=== PATIENT | female | born 1985 | race Caucasian/White ===

== ENCOUNTER 2017-09-29 14:35 | Observation (INO) | payer OTHER ==
[~2017-09-29] VITALS: Ht 152.4 cm; Wt 65.8 kg
[~2017-09-29 14:35] MED LIST: NAPR-54 PO
[2017-09-29] MEDS ORDERED: FERR-252 PO (17:56)
[2017-09-29] MEDS ORDERED: PREN-546 PO (17:56)
== END 2017-09-29 19:00 | disposition home or self-care (01) ==
LOC: MLD 14:35
PROVIDERS: ADMIT Obstetrics & Gynecology; ATTEND Obstetrics & Gynecology
DX: O62.9 Abnormality of forces of labor, unspecified (principal); Z3A.24 24 weeks gestation of pregnancy
CPT/HCPCS: 76805; G0378; Q0092

== ENCOUNTER 2018-06-16 11:36 | Emergency (ER) | payer OTHER ==
[~2018-06-16] VITALS: Ht 152.4 cm; Wt 65.3 kg
[~2018-06-16 11:36] MED LIST changes: +FERR-252 PO; -NAPR-54 PO; +PREN-546 PO
[2018-06-16 11:58] VITALS: BP 123/80
--- NOTE | 2018-06-16 14:00 | NUR ---
1ST CALL FREDDY SHELBY N/A [id number] CALL FREDDY SHELBY N/A
--- NOTE | 2018-06-16 14:13 | NUR ---
PATIENT LEFT WITHOUT BEING SEEN BY DR. MIDDLETON. NO FURTHER CARE PROVIDED FOR PATIENT. 3RD CALL ER AFSANEH N/A
== END 2018-06-16 14:00 | disposition left against medical advice (07) ==
LOC: MED 11:36
DX: R11.2 Nausea with vomiting, unspecified (principal); M54.9 Dorsalgia, unspecified; Z53.21 Procedure and treatment not carried out due to patient leaving prior to being seen by health care provider

== ENCOUNTER 2020-08-27 13:48 | Emergency (ER) | payer SELFPAY ==
[~2020-08-27] VITALS: Ht 152.4 cm; Wt 72.6 kg
[2020-08-27 13:55] VITALS: BP 116/75
--- NOTE | 2020-08-27 14:51 | NUR ---
PATIENT AMBULATED TO BED 12 WITH STEADY GAIT
--- NOTE | 2020-08-27 14:54 | NUR ---
LAB AT BEDSIDE
--- NOTE | 2020-08-27 14:59 | NUR ---
34 Y/O FEMALE C/O PELVIC PAIN 12/08 DESCRIBES ACHING X2DAY RADIATING TO BILATERAL LEGS. PT DENIES TAKING ANYTHING FOR PAIN. PT STATES SHE TOOK A HOME AT HOME YESTERDAY AND IT WAS POSITIVE. LMP 08/05/20, [id number]. PT DENIES N/V, DENIES FEVER/CHILLS. DENIES VAGINAL BLEEDING. ABD IS FLAT, SOFT, AND TENDER ON PALPATION WITH ACTIVE BOWEL SOUNDS X4 QUADS. PT A/O X4 WITH EVEN AND UNLABORED RESPIRATIONS. PT IN GOWN DENIES PMH ALLERGIES: CIPRO
[2020-08-27 15:04] LABS: BILIRUBIN,URINE NEGATIVE (NEGATIVE); BLOOD, URINE 3+ (NEGATIVE); COLOR,URINE YELLOW (YELLOW); LEUKOCYTE ESTERASE ,URINE NEGATIVE (NEGATIVE); NITRITE, URINE NEGATIVE (NEGATIVE); PH,URINE 5.5 (5.0-9.0); UGLUCOSE NEGATIVE (NEGATIVE)
--- NOTE | 2020-08-27 15:04 | NUR ---
BENJAMÍN KEVIN AT BEDSIDE EVALUATING PT.
[2020-08-27 15:13] LABS: BASOPHILS % (AUTO) 0.4 % (0.0-2.0); EOSINOPHILS % (AUTO) 0.3 % (0.0-4.0); HEMATOCRIT 39.5 % (36-48); HEMOGLOBIN 13.4 g/dL (12.0-16.0); LYMPHOCYTES # (AUTO) 2.2 K/uL (2.5-16.5); MEAN CORPUSCULAR HEMOGLOBIN 31 pg (27-31); MEAN CORPUSCULAR HGB CONC 34 g/dL (33-37); MEAN CORPUSCULAR VOLUME 91.8 fL (80-94); MONOCYTES # (AUTO) 0.6 K/uL (0.8-1.0); NEUTROPHILS # (AUTO) 7.1 K/uL (1.8-7.7); NEUTROPHILS % (AUTO) 71.3 % (42.2-75.2); PLATELET COUNT (AUTO) 200 K/uL (140-450); RED BLOOD CELL COUNT(AUTO) 4.31 MIL/uL (4.20-5.40); RED CELL DISTRIBUTION WIDTH 13.7 % (11.6-13.7); WHITE BLOOD COUNT (AUTO) 9.9 K/uL (4.8-10.8)
[2020-08-27 15:16] LABS: APPEARANCE,URINE HAZY (CLEAR)
--- NOTE | 2020-08-27 15:24 | NUR ---
US AT BEDSIDE
[2020-08-27 16:03] LABS: RBC,URINE 11-20 (MOD) /HPF (0-5)
[2020-08-27] MEDS ORDERED: ACETAMINOPHEN EXTRA STRENGTH 500 MG TAB PO ONE (16:35)
[2020-08-27] MEDS ORDERED: ACET-10509 PO (17:18)
[2020-08-27 17:32] VITALS: BP 116/75
--- NOTE | 2020-08-27 17:33 | NUR ---
Patient discharged with v/s stable. Written and verbal after care instructions ABOUT THREATENED MISCARRIAGE given and explained. Patient alert, oriented and verbalized understanding of instructions. Ambulatory with steady gait. All questions addressed prior to discharge. ID band removed. Patient advised to follow up with PMD. Rx of ACETAMINOPHEN TAB EXTRA STRENGTH given. Patient educated on indication of medication including possible reaction and side effects. Opportunity to ask questions provided and answered.
== END 2020-08-27 17:33 | disposition home or self-care (01) ==
LOC: MED 13:48
DX: O26.899 Other specified pregnancy related conditions, unspecified trimester (principal); R10.2 Pelvic and perineal pain; Z88.1 Allergy status to other antibiotic agents; Z79.899 Other long term (current) drug therapy; Z87.442 Personal history of urinary calculi
CPT/HCPCS: 36415; 76817; 81001; 81025; 84702; 85025; 86900; 86901; 87086; 96374; 96375; 99284; 99285

== ENCOUNTER 2020-10-31 04:20 | Emergency (ER) | payer MEDICAID ==
[~2020-10-31] VITALS: Ht 157.5 cm; Wt 77.1 kg
[~2020-10-31 04:20] MED LIST changes: +ACET-10509 PO
[2020-10-31 04:25] VITALS: BP 124/71
--- NOTE | 2020-10-31 04:28 | NUR ---
TO LOBBY A/W BED AMBULATORY
--- NOTE | 2020-10-31 04:54 | NUR ---
PT ABULATED TO ER BED 4
--- NOTE | 2020-10-31 05:09 | NUR ---
Ultrasound at bedside.
--- NOTE | 2020-10-31 05:22 | NUR ---
35 YO/F BIB SELF W CO CONSTANT R PELVIC "INTENSE ACHE" 12/08 THAT RADIATES TO R LEG AND R LOWER BACK BEGINING AT 2300 LAST NIGHT. PAIN WORSENS W MOVEMENT. PATIENT REPORTS SHE IS 3 WEEKS , DENIES VAGINAL BLEEDING OR ABDNORMAL VAGINAL DISCHARGE. PATIENT ALSO REPORTS NAUSEA D/T . PATIENT DENIES FEVER, V/D. BOWEL SOUNDS PRESENT, R LOWER ABDOMINAL/PELVIC AREA TENDER TO TOUCH. PATIENT REPORTS SHE TOOK 500MG OF TYLENOL X2 HOURS AGO W/O RELIEF. PATIENT LAYING SUPINE IN BED, BREATHING EVEN AND UNLABORED, NAD NOTED. WILL CONTINUE TO MONITOR. PMH:KIDNEY STONES IN 2006 ALLERGIES: CIPRO
[2020-10-31 05:55] LABS: BASOPHILS % (AUTO) 0.2 % (0.0-2.0); EOSINOPHILS % (AUTO) 0.4 % (0.0-4.0); HEMATOCRIT 34.1 % (36-48); HEMOGLOBIN 11.9 g/dL (12.0-16.0); LYMPHOCYTES % (AUTO) 14.2 % (20.5-51.1); MEAN CORPUSCULAR HEMOGLOBIN 32 pg (27-31); MEAN CORPUSCULAR HGB CONC 35 g/dL (33-37); MEAN CORPUSCULAR VOLUME 91.8 fL (80-94); MONOCYTES # (AUTO) 0.4 K/uL (0.8-1.0); MONOCYTES % (AUTO) 5.4 % (1.7-9.3); NEUTROPHILS # (AUTO) 5.7 K/uL (1.8-7.7); NEUTROPHILS % (AUTO) 79.8 % (42.2-75.2); PLATELET COUNT (AUTO) 166 K/uL (140-450); RED BLOOD CELL COUNT(AUTO) 3.71 MIL/uL (4.20-5.40); RED CELL DISTRIBUTION WIDTH 14.1 % (11.6-13.7); WHITE BLOOD COUNT (AUTO) 7.1 K/uL (4.8-10.8)
[2020-10-31 06:00] LABS: BILIRUBIN,URINE NEGATIVE (NEGATIVE); BLOOD, URINE TRACE-I (NEGATIVE); COLOR,URINE YELLOW (YELLOW); LEUKOCYTE ESTERASE ,URINE TRACE (NEGATIVE); NITRITE, URINE NEGATIVE (NEGATIVE); UGLUCOSE NEGATIVE (NEGATIVE)
[2020-10-31] MEDS: ACETAMINOPHEN 325 MG TAB PO ONE (06:06)
[2020-10-31 06:39] LABS: APPEARANCE,URINE HAZY (CLEAR)
[2020-10-31 06:40] LABS: ALBUMIN 3.1 g/dL (3.4-5.0); ANION GAP 11.3 (8-16); CARBON DIOXIDE 27.9 mmol/L (21-32); CREATININE 0.6 mg/dL (0.6-1.3); POTASSIUM 3.2 mmol/L (3.5-5.1); TOTAL BILIRUBIN 0.3 mg/dL (0.0-1.0)
[2020-10-31 06:40] LABS: RBC,URINE 0-5 /HPF (0-5); WBC,URINE 0-5 /HPF (0-5)
--- NOTE | 2020-10-31 07:26 | NUR ---
Pt report given to JUAN GALINDO. Transfer of care at this time.
--- NOTE | 2020-10-31 07:43 | NUR ---
ASSUMED CARE OF THIS PATIENT, REPORT RECEIVED FROM LÁZARO MARTINEZ . RESTING WITH EYES CLOSED, AWAITING RESULTS AND PLAN OF CARE.
[2020-10-31 07:44] VITALS: BP 121/69
[2020-10-31] MEDS ORDERED: NITR100C7 PO (07:45)
--- NOTE | 2020-10-31 08:07 | NUR ---
Patient discharged with v/s stable. Written and verbal after care instructions ABOUT UTI given and explained. Patient alert, oriented and verbalized understanding of instructions. Ambulatory with steady gait. All questions addressed prior to discharge. ID band removed. Patient advised to follow up with PMD. Rx of MACROBID 100MS CAPSULE given. Patient educated on indication of medication including possible reaction and side effects. Opportunity to ask questions provided and answered.
== END 2020-10-31 08:06 | disposition home or self-care (01) ==
LOC: MED 04:20
DX: N39.0 Urinary tract infection, site not specified (principal); Z87.442 Personal history of urinary calculi; Z79.899 Other long term (current) drug therapy; Z88.1 Allergy status to other antibiotic agents
CPT/HCPCS: 36415; 76801; 80053; 81001; 83690; 84702; 85025; 99284

== ENCOUNTER 2021-03-09 08:25 | Observation (INO) | payer MEDICAID, OTHER ==
[~2021-03-09] VITALS: Ht 152.4 cm; Wt 74.4 kg
[~2021-03-09 08:25] MED LIST changes: +NITR100C7 PO
[2021-03-09] MEDS ORDERED: BETAMETH ACET/BETAMETH NA PH 30 MG/5 ML VIAL IM SCH (08:50)
[2021-03-09] MEDS: TERBUTALINE 1 MG/ML VIAL SUBQ SCH ×2 (08:50→10:28)
[2021-03-09] MEDS: DEXT 5% / LACT RING 1,000 ML IV SCH ×2 (09:04→11:00)
[2021-03-09] MEDS: MAG SULF 20 GM/H2O PREMIX DRIP 500 ML IV SCH (13:30)
[2021-03-09 13:50] LABS: ALBUMIN 2.3 g/dL (3.4-5.0); ANION GAP 13.9 (8-16); CARBON DIOXIDE 25.3 mmol/L (21-32); CREATININE 0.6 mg/dL (0.6-1.3); MAGNESIUM 1.7 mg/dL (1.8-2.4); POTASSIUM 3.2 mmol/L (3.5-5.1); TOTAL BILIRUBIN 0.2 mg/dL (0.0-1.0)
[2021-03-09] MEDS ORDERED: POTASSIUM CHLORIDE 10 MEQ TABER PO SCH (16:22)
[2021-03-09] MEDS ORDERED: LACTATED RINGERS 1,000 ML IV SCH (18:00)
[2021-03-10] MEDS: MAG SULF 20 GM/H2O PREMIX DRIP 500 ML IV SCH (00:02)
--- NOTE | 2021-03-10 08:27 | NUR ---
PATIENT HAS BEEN SCREENED AND CATEGORIZED LOW NUTRITION RISK. PATIENT WILL BE SEEN WITHIN 7 DAYS OF ADMISSION. 03/05/[address]
[2021-03-10] MEDS ORDERED: BETAMETH ACET/BETAMETH NA PH 30 MG/5 ML VIAL IM SCH (09:00)
== END 2021-03-10 10:00 | disposition home or self-care (01) ==
LOC: MLD 08:25
PROVIDERS: ADMIT Obstetrics & Gynecology; ATTEND Obstetrics & Gynecology
DX: O60.03 Preterm labor without delivery, third trimester (principal); Z20.822 Contact with and (suspected) exposure to COVID-19; Z3A.31 31 weeks gestation of pregnancy
CPT/HCPCS: 36415; 59025; 80053; 83735; 87426; 93970; 96361; 96365; 96366; 96372; G0378; G0379; J0702; J3105; J3475; Q0092

== ENCOUNTER 2021-04-18 19:30 | Inpatient (IN) | payer OTHER, SELFPAY ==
[~2021-04-18] VITALS: Ht 152.4 cm; Wt 79.4 kg
[~2021-04-18 19:30] MED LIST changes: -ACET-10509 PO; -FERR-252 PO; -NITR100C7 PO
[2021-04-18 20:09] VITALS: BP 116/66
[2021-04-18] MEDS ORDERED: METHYLERGONOVINE 0.2 MG/ML AMP IM PRN (20:10)
[2021-04-18 21:08] LABS: BASOPHILS % (AUTO) 0.3 % (0.0-2.0); EOSINOPHILS # (AUTO) 0.1 K/uL (0-0.4); EOSINOPHILS % (AUTO) 0.9 % (0.0-4.0); HEMATOCRIT 30.7 % (36-48); HEMOGLOBIN 10.7 g/dL (12.0-16.0); LYMPHOCYTES # (AUTO) 1.5 K/uL (2.5-16.5); LYMPHOCYTES % (AUTO) 21.8 % (20.5-51.1); MEAN CORPUSCULAR HEMOGLOBIN 32 pg (27-31); MEAN CORPUSCULAR HGB CONC 35 g/dL (33-37); MEAN CORPUSCULAR VOLUME 91.5 fL (80-94); MONOCYTES # (AUTO) 0.5 K/uL (0.8-1.0); MONOCYTES % (AUTO) 7.4 % (1.7-9.3); NEUTROPHILS # (AUTO) 4.8 K/uL (1.8-7.7); NEUTROPHILS % (AUTO) 69.6 % (42.2-75.2); PLATELET COUNT (AUTO) 135 K/uL (140-450); RED BLOOD CELL COUNT(AUTO) 3.35 MIL/uL (4.20-5.40); WHITE BLOOD COUNT (AUTO) 6.9 K/uL (4.8-10.8)
[2021-04-18] MEDS: LACTATED RINGERS 1,000 ML IV SCH (21:09)
[2021-04-18] MEDS: NALBUPHINE 10 MG/ML AMP IVP PRN (21:10)
[2021-04-18] MEDS: PROMETHAZINE 25 MG/ML VIAL IVP PRN (21:11)
[2021-04-18 21:14] LABS: BILIRUBIN,URINE NEGATIVE (NEGATIVE); BLOOD, URINE TRACE-I (NEGATIVE); LEUKOCYTE ESTERASE ,URINE 2+ (NEGATIVE); NITRITE, URINE NEGATIVE (NEGATIVE); PH,URINE 6.5 (5.0-9.0); UGLUCOSE NEGATIVE (NEGATIVE)
[2021-04-18 21:26] LABS: APPEARANCE,URINE HAZY (CLEAR); COLOR,URINE STRAW (YELLOW)
[2021-04-18 21:47] LABS: ALBUMIN 2.1 g/dL (3.4-5.0); ANION GAP 11.4 (8-16); CARBON DIOXIDE 27.1 mmol/L (21-32); CREATININE 0.5 mg/dL (0.6-1.3); POTASSIUM 3.5 mmol/L (3.5-5.1); TOTAL BILIRUBIN 0.4 mg/dL (0.0-1.0)
[2021-04-19] MEDS ORDERED: AMPICILLIN 2,000 MG VIAL ONE (02:36)
[2021-04-19] MEDS ORDERED: AMPICILLIN 2,000 MG in NACL 0.9% MINI-BAG PLUS 100 ML IV SCH (04:00)
[2021-04-19] MEDS: LACTATED RINGERS 1,000 ML IV SCH ×2 (04:15→13:02)
[2021-04-19] MEDS ORDERED: AMPICILLIN 1,000 MG VIAL ONE ×2 (05:46→10:05)
[2021-04-19] MEDS: AMPICILLIN 1,000 MG in NACL 0.9% MINI-BAG PLUS 50 ML IV SCH ×2 (06:25→10:28)
[2021-04-19] MEDS: PROMETHAZINE 25 MG/ML VIAL IVP PRN (07:37)
[2021-04-19] MEDS: NALBUPHINE 10 MG/ML AMP IVP PRN (07:37)
--- NOTE | 2021-04-19 09:08 | NUR ---
PATIENT HAS BEEN SCREENED AND CATEGORIZED LOW NUTRITION RISK. PATIENT WILL BE SEEN WITHIN 7 DAYS OF ADMISSION. 04/25/[address]
== END 2021-04-19 14:30 | disposition home or self-care (01) | DRG 566 ==
LOC: MLD 19:30 → OBSVTOIN 04-19 01:27
PROVIDERS: ADMIT Obstetrics & Gynecology; ATTEND Obstetrics & Gynecology
DX: O62.8 Other abnormalities of forces of labor (principal); Z20.822 Contact with and (suspected) exposure to COVID-19; Z3A.37 37 weeks gestation of pregnancy
CPT/HCPCS: G0378 ×6; 36415; 80053; 81001; 85025; 86592; 86886; 86900; 86901; 87086; 87653-90; J0290; J2300; J2550

== ENCOUNTER 2021-04-28 20:29 | Observation (INO) | payer OTHER, SELFPAY ==
[~2021-04-28] VITALS: Ht 152.4 cm; Wt 79.8 kg
[2021-04-28] MEDS ORDERED: NALBUPHINE 10 MG/ML AMP IVP PRN ×2 (21:20→21:35)
[2021-04-28] MEDS ORDERED: METHYLERGONOVINE 0.2 MG/ML AMP IM PRN (21:20)
[2021-04-28] MEDS ORDERED: LACTATED RINGERS 1,000 ML IV SCH ×2 (21:20→21:35)
[2021-04-28] MEDS ORDERED: AMPICILLIN 2,000 MG in NACL 0.9% MINI-BAG PLUS 100 ML IV SCH (21:20)
[2021-04-28] MEDS ORDERED: CARBOPROST 250 MCG/ML AMP IM PRN (21:20)
[2021-04-28] MEDS ORDERED: PROMETHAZINE 25 MG/ML VIAL IVP PRN ×2 (21:20→21:35)
[2021-04-28 21:47] VITALS: BP 117/69
[2021-04-28 22:15] LABS: BASOPHILS % (AUTO) 0.5 % (0.0-2.0); EOSINOPHILS # (AUTO) 0.1 K/uL (0-0.4); EOSINOPHILS % (AUTO) 0.8 % (0.0-4.0); HEMATOCRIT 33.8 % (36-48); HEMOGLOBIN 11.6 g/dL (12.0-16.0); LYMPHOCYTES # (AUTO) 1.7 K/uL (2.5-16.5); LYMPHOCYTES % (AUTO) 20.7 % (20.5-51.1); MEAN CORPUSCULAR HEMOGLOBIN 31 pg (27-31); MEAN CORPUSCULAR HGB CONC 34 g/dL (33-37); MONOCYTES # (AUTO) 0.5 K/uL (0.8-1.0); NEUTROPHILS # (AUTO) 6.1 K/uL (1.8-7.7); PLATELET COUNT (AUTO) 169 K/uL (140-450); RED BLOOD CELL COUNT(AUTO) 3.71 MIL/uL (4.20-5.40); RED CELL DISTRIBUTION WIDTH 14.2 % (11.6-13.7); WHITE BLOOD COUNT (AUTO) 8.4 K/uL (4.8-10.8)
[2021-04-28 22:55] LABS: ALBUMIN 2.3 g/dL (3.4-5.0); ANION GAP 11.6 (8-16); CARBON DIOXIDE 27.1 mmol/L (21-32); CREATININE 0.6 mg/dL (0.6-1.3); POTASSIUM 3.7 mmol/L (3.5-5.1); TOTAL BILIRUBIN 0.3 mg/dL (0.0-1.0)
[2021-04-29] MEDS ORDERED: AMPICILLIN 1,000 MG in NACL 0.9% MINI-BAG PLUS 50 ML IV SCH ×2
--- NOTE | 2021-04-29 07:28 | NUR ---
PATIENT HAS BEEN SCREENED AND CATEGORIZED LOW NUTRITION RISK. PATIENT WILL BE SEEN WITHIN 7 DAYS OF ADMISSION. 05/06/21 RUTHY ESPINOZA MS, RDN
== END 2021-04-29 10:45 | disposition home or self-care (01) ==
LOC: MLD 20:29
PROVIDERS: ADMIT Obstetrics & Gynecology; ATTEND Obstetrics & Gynecology
DX: O26.893 Other specified pregnancy related conditions, third trimester (principal); R10.9 Unspecified abdominal pain; O99.891 Other specified diseases and conditions complicating pregnancy; M54.9 Dorsalgia, unspecified; Z20.822 Contact with and (suspected) exposure to COVID-19; Z3A.38 38 weeks gestation of pregnancy
CPT/HCPCS: 36415; 59025; 80053; 85025; 86592; 86886; 86900; 86901; 87426; 96360; 96361; G0378

== ENCOUNTER 2021-12-08 19:20 | Emergency (ER) | payer OTHER ==
[~2021-12-08] VITALS: Ht 152.4 cm; Wt 74.8 kg
[2021-12-08 19:27] VITALS: BP 128/68
[2021-12-08] MEDS: ACETAMINOPHEN 325 MG TAB PO ONE (21:16)
[2021-12-08 23:10] VITALS: BP 128/68
== END 2021-12-08 23:10 | disposition home or self-care (01) ==
LOC: MED 19:20
DX: B34.9 Viral infection, unspecified (principal); Z20.822 Contact with and (suspected) exposure to COVID-19; Z87.442 Personal history of urinary calculi; Z79.899 Other long term (current) drug therapy; Z88.1 Allergy status to other antibiotic agents; Z90.49 Acquired absence of other specified parts of digestive tract
CPT/HCPCS: 71045; 99284

== ENCOUNTER 2022-08-01 00:20 | Emergency (ER) | payer OTHER ==
[~2022-08-01] VITALS: Ht 152.4 cm; Wt 69.9 kg
[~2022-08-01 00:20] MED LIST changes: +AMOXICILLIN; +NEOMYCIN; +VICODIN
[2022-08-01 00:46] VITALS: BP 130/75
--- NOTE | 2022-08-01 00:50 | NUR ---
PT TO LOBBY
--- NOTE | 2022-08-01 01:03 | NUR ---
PT TAKEN TO BED 1
[2022-08-01 01:29] LABS: BASOPHILS % (AUTO) 0.4 % (0.0-2.0); EOSINOPHILS % (AUTO) 0.5 % (0.0-4.0); HEMATOCRIT 38.1 % (36-48); LYMPHOCYTES # (AUTO) 1.2 K/uL (2.5-16.5); LYMPHOCYTES % (AUTO) 16.6 % (20.5-51.1); MEAN CORPUSCULAR HEMOGLOBIN 31 pg (27-31); MEAN CORPUSCULAR HGB CONC 34 g/dL (33-37); MEAN CORPUSCULAR VOLUME 90.4 fL (80-94); MONOCYTES # (AUTO) 0.5 K/uL (0.8-1.0); MONOCYTES % (AUTO) 7.3 % (1.7-9.3); NEUTROPHILS # (AUTO) 5.5 K/uL (1.8-7.7); NEUTROPHILS % (AUTO) 75.2 % (42.2-75.2); PLATELET COUNT (AUTO) 166 K/uL (140-450); RED BLOOD CELL COUNT(AUTO) 4.22 MIL/uL (4.20-5.40); RED CELL DISTRIBUTION WIDTH 13.4 % (11.6-13.7); WHITE BLOOD COUNT (AUTO) 7.3 K/uL (4.8-10.8)
[2022-08-01 01:49] LABS: APPEARANCE,URINE CLEAR (CLEAR); BILIRUBIN,URINE NEGATIVE (NEGATIVE); BLOOD, URINE 2+ (NEGATIVE); COLOR,URINE YELLOW (YELLOW); LEUKOCYTE ESTERASE ,URINE 2+ (NEGATIVE); NITRITE, URINE NEGATIVE (NEGATIVE); PH,URINE 6.5 (5.0-9.0); UGLUCOSE NEGATIVE (NEGATIVE)
[2022-08-01 01:52] LABS: ALBUMIN 3.6 g/dL (3.4-5.0); ANION GAP 9.5 (8-16); CARBON DIOXIDE 27.2 mmol/L (21-32); CREATININE 0.7 mg/dL (0.6-1.3); POTASSIUM 3.7 mmol/L (3.5-5.1); TOTAL BILIRUBIN 0.3 mg/dL (0.0-1.0)
[2022-08-01 01:54] LABS: RBC,URINE 0-5 /HPF (0-5); WBC,URINE 16-25 (MOD) /HPF (0-5)
[2022-08-01] MEDS ORDERED: CEFP200T20 PO (02:02)
[2022-08-01 02:08] VITALS: BP 130/75
--- NOTE | 2022-08-01 02:08 | NUR ---
Patient discharged with v/s stable. Written and verbal after care instructions given and explained. Patient alert, oriented and verbalized understanding of instructions. Ambulatory with by caregiver. All questions addressed prior to discharge. ID band removed. Patient advised to follow up with PMD. Rx of CEFPODOXIME PROXETIL given. Patient educated on indication of medication including possible reaction and side effects. Opportunity to ask questions provided and answered.
== END 2022-08-01 02:08 | disposition home or self-care (01) ==
LOC: MED 00:20
DX: N39.0 Urinary tract infection, site not specified (principal); R11.0 Nausea; Z79.899 Other long term (current) drug therapy; Z88.1 Allergy status to other antibiotic agents
CPT/HCPCS: 36415; 80053; 81001; 81025; 83690; 85025; 87086; 99283

== ENCOUNTER 2022-08-13 01:00 | Emergency (ER) | payer OTHER ==
[~2022-08-13] VITALS: Ht 153.7 cm; Wt 72.1 kg
[~2022-08-13 01:00] MED LIST changes: +CEFP200T20 PO
[2022-08-13 01:07] VITALS: BP 122/73
--- NOTE | 2022-08-13 01:11 | NUR ---
patient in the bathroom for urine collection
--- NOTE | 2022-08-13 01:15 | NUR ---
pt to lobby
[2022-08-13 01:30] LABS: APPEARANCE,URINE CLEAR (CLEAR); BILIRUBIN,URINE NEGATIVE (NEGATIVE); BLOOD, URINE 2+ (NEGATIVE); COLOR,URINE YELLOW (YELLOW); LEUKOCYTE ESTERASE ,URINE TRACE (NEGATIVE); NITRITE, URINE NEGATIVE (NEGATIVE); PH,URINE 6.5 (5.0-9.0); UGLUCOSE NEGATIVE (NEGATIVE)
--- NOTE | 2022-08-13 01:31 | NUR ---
Patient taken to bed 1 with her family.
[2022-08-13] MEDS ORDERED: KETOROLAC 30 MG/ML VIAL IM ONE (02:50)
[2022-08-13 03:02] LABS: BASOPHILS % (AUTO) 0.6 % (0.0-2.0); EOSINOPHILS # (AUTO) 0.1 K/uL (0-0.4); HEMATOCRIT 35.2 % (36-48); LYMPHOCYTES # (AUTO) 1.5 K/uL (2.5-16.5); LYMPHOCYTES % (AUTO) 24.4 % (20.5-51.1); MEAN CORPUSCULAR HEMOGLOBIN 31 pg (27-31); MEAN CORPUSCULAR HGB CONC 34 g/dL (33-37); MEAN CORPUSCULAR VOLUME 90.6 fL (80-94); MONOCYTES # (AUTO) 0.5 K/uL (0.8-1.0); MONOCYTES % (AUTO) 8.1 % (1.7-9.3); NEUTROPHILS # (AUTO) 4.1 K/uL (1.8-7.7); NEUTROPHILS % (AUTO) 65.9 % (42.2-75.2); PLATELET COUNT (AUTO) 190 K/uL (140-450); RED BLOOD CELL COUNT(AUTO) 3.89 MIL/uL (4.20-5.40); RED CELL DISTRIBUTION WIDTH 13.2 % (11.6-13.7); WHITE BLOOD COUNT (AUTO) 6.2 K/uL (4.8-10.8)
[2022-08-13 03:20] LABS: ALBUMIN 3.3 g/dL (3.4-5.0); ANION GAP 9.3 (8-16); CARBON DIOXIDE 31.4 mmol/L (21-32); CREATININE 0.6 mg/dL (0.6-1.3); POTASSIUM 3.7 mmol/L (3.5-5.1); TOTAL BILIRUBIN 0.5 mg/dL (0.0-1.0)
[2022-08-13] MEDS ORDERED: NAPR-54 PO (05:42)
[2022-08-13] MEDS ORDERED: NITR100C7 PO (05:42)
== END 2022-08-13 05:47 | disposition home or self-care (01) ==
LOC: MED 01:00
DX: N39.0 Urinary tract infection, site not specified (principal); R10.2 Pelvic and perineal pain; Z88.1 Allergy status to other antibiotic agents; Z79.899 Other long term (current) drug therapy; Z90.49 Acquired absence of other specified parts of digestive tract; Z87.442 Personal history of urinary calculi
CPT/HCPCS: 36415; 74176; 80053; 81001; 81025; 85025; 87086; 96372; 99285; J1885

== ENCOUNTER 2023-04-16 01:43 | Emergency (ER) | payer MEDICAID, OTHER ==
[~2023-04-16] VITALS: Ht 152.4 cm; Wt 74.8 kg
[~2023-04-16 01:43] MED LIST changes: +NAPR-54 PO; +NITR100C7 PO
[2023-04-16 01:44] VITALS: BP 132/99; PULSE 98; RESP 16; TEMP 97.7; O2SAT 98
[2023-04-16 02:00] VITALS: O2SAT 98
[2023-04-16 02:11] LABS: APPEARANCE,URINE CLEAR (CLEAR); BILIRUBIN,URINE NEGATIVE (NEGATIVE); BLOOD, URINE TRACE-I (NEGATIVE); COLOR,URINE YELLOW (YELLOW); LEUKOCYTE ESTERASE ,URINE TRACE (NEGATIVE); NITRITE, URINE NEGATIVE (NEGATIVE); PROTEIN,URINE NEGATIVE (NEGATIVE); UGLUCOSE NEGATIVE (NEGATIVE); UROBILINOGEN,URINE 0.2 EU/dL (0.2 - 1)
[2023-04-16 02:39] LABS: BACTERIA,URINE >30 (MANY) /HPF (None Seen); RBC,URINE 0-5 /HPF (0-5); WBC,URINE 0-5 /HPF (0-5)
[2023-04-16 02:40] LABS: MUCUS,URINE 1+ /LPF (None Seen)
[2023-04-16] MEDS ORDERED: KETOROLAC 30 MG/ML VIAL IM ONE (04:05)
[2023-04-16] MEDS ORDERED: CEPH-588 PO (04:08)
[2023-04-16] MEDS ORDERED: ACET-10509 PO (04:08)
[2023-04-16] MEDS ORDERED: NAPR-54 PO (04:08)
== END 2023-04-16 04:40 | disposition home or self-care (01) ==
LOC: MED 01:43
DX: N39.0 Urinary tract infection, site not specified (principal); Z87.448 Personal history of other diseases of urinary system; Z90.49 Acquired absence of other specified parts of digestive tract; Z79.899 Other long term (current) drug therapy; Z79.1 Long term (current) use of non-steroidal anti-inflammatories (NSAID); Z79.2 Long term (current) use of antibiotics; Z88.1 Allergy status to other antibiotic agents
CPT/HCPCS: 81001; 81025; 87086; 96372; 99283; J1885